=== PATIENT | male | born 1980 | race Caucasian/White ===

== ENCOUNTER 2022-08-29 18:16 | Day surgery (SDC) | payer OTHER, SELFPAY ==
--- NOTE | ~2022-08-29 | CT_ITS ---
EXAMINATION: CT ABDOMEN AND PELVIS WITH CONTRAST CLINICAL INFORMATION: Left lower quadrant pain COMPARISON: None available. TECHNIQUE: Multidetector volumetric images were obtained from the superior aspect of the liver through the pubic symphysis following administration 85 mL of Omnipaque 350 intravenous contrast. Sagittal and coronal reformatted images were obtained on the technologist's workstation. Oral contrast: No This CT examination was performed using dose optimization techniques as appropriate, variously including the following: *Automated exposure control *Adjustment of mA and/or kV according to patient size (this includes techniques or standardized protocols for targeted exams where dose is matched to indication/reason for exam; i.e. extremities or head) *Use of iterative reconstruction technique DLP: 703 mGy-cm FINDINGS: LUNG BASES: The visualized lung bases are unremarkable. LIVER, GALLBLADDER, AND BILIARY TREE: The liver is enlarged with borderline decreased attenuation suggesting hepatic steatosis. No focal hepatic lesion or biliary ductal dilatation is present. The gallbladder is unremarkable with no evidence of radiopaque gallstones, gallbladder wall thickening, or obvious pericholecystic inflammatory changes. PANCREAS: Unremarkable. SPLEEN: Unremarkable. ADRENAL GLANDS: Unremarkable. KIDNEYS AND URETERS: Right: The right kidney and ureter appear normal. Left: There is left-sided hydronephrosis and dilatation of the ureter down to a level of a 1.2 cm obstructing proximal ureteral calculus which measures 974 Hounsfield units and is 12.7 cm from the posterior axillary line. There is a small punctate 2 mm nonobstructing left lower pole calculus. BLADDER: Unremarkable. GASTROINTESTINAL TRACT: The small and large bowel are unremarkable. The appendix is unremarkable. ABDOMINAL WALL: No significant hernia is appreciated. LYMPH NODES: Normal. VASCULAR: Unremarkable. PELVIC VISCERA: The prostate and seminal vesicles are unremarkable. OSSEOUS STRUCTURES: Mild degenerative changes are present in the spine CT/CT abdomen pelvis w IV con IMPRESSION: Obstructing 1.2 cm proximal left ureteral calculus with associated hydronephrosis. Fleischner guidelines were followed.
[2022-08-29 18:51] VITALS: BP 149/92; PULSE 77; RESP 18; TEMP 36.4; O2SAT 100; BMI 33.5
[2022-08-29 19:07] LABS: MANUAL DIFF FLAG NO
[2022-08-29 19:11] LABS: Basophils Percent Auto 0.2 % (0-2); Eosinophils Percent Auto 0.2 % (0-4); Hematocrit 43.1 % (42.0-52.0); Hemoglobin 15.2 g/dl (14.0-18.0); Imm Gran Abs Auto 0.03 X10*3/uL (0.00-0.03); Imm Gran Pct Auto 0.3 % (0.0-0.4); Lymphocytes Percent Auto 19.4 % (20-40); Mean Corpuscular HGB Conc 35.3 g/dl (31.0-36.0); Mean Corpuscular Hemoglobin 28.7 pg (27.0-33.0); Mean Corpuscular Volume 81.3 fL (80.0-98.0); Mean Platelet Volume 9.1 fL (9.4-12.4); Monocytes Absolute Auto 0.7 X10*3/uL (0.1-1.2); Neutrophils Absolute Auto 7.3 x10*3/uL (2.0-8.3); Neutrophils Percent Auto 72.9 % (45-73); Platelet Count 327 X10*3/uL (160-400); Red Cell Distribution Width 12.6 % (11.0-16.0); White Blood Count 10.1 X10*3/uL (4.8-10.8)
[2022-08-29 19:25] LABS: Alanine Aminotransferase 22 U/L (0-40); Albumin Level 4.8 g/dL (3.5-5.0); Alkaline Phosphatase 53 U/L (39-117); Anion Gap 14 (12-20); Aspartate Amino Transferase 17 U/L (5-37); Bilirubin Total 2.1 mg/dL (0.0-1.0); Blood Urea Nitrogen 22 mg/dL (9-16); Calcium 9.7 mg/dL (8.4-10.2); Carbon Dioxide 24 mmol/L (22-29); Chloride 103 mmol/L (96-108); Creatinine Clr Calc Pharmacy 84.1; Estimated Glomerular Filt Rate 54; Glucose Random 116 mg/dL (60-115); Lipase 14 U/L (8-78); Potassium 4.3 mmol/L (3.3-5.1); Sodium 137 mmol/L (135-145); Total Protein 7.7 g/dL (6.5-8.0)
[2022-08-29 19:31] LABS: IDNOW Serial# 9DB6401D; Influenza A Negative (Negative); Influenza B2 Negative (Negative)
[2022-08-29 19:32] LABS: COVID-19 Test Negative (Negative); IDNOW Serial# 6674DD1D
--- NOTE | 2022-08-29 19:34 | ED_ITS ---
HPI - Abdominal Pain General Chief Complaint: Abdominal Pain <BRITTANY Heaton - Last Filed: 08/29/22 20:47> Stated Complaint: Abdominal pain/Vomiting <BRITTANY Heaton - Last Filed: 08/29/22 20:47> Time Seen by Provider: 08/29/22 21:17 <BRITTANY Heaton - Last Filed: 08/29/22 20:47> Source: patient <Franco Perez MD - Last Filed: 08/30/22 07:13> Mode of arrival: ambulatory <Franco Perez MD - Last Filed: 08/30/22 07:13> Limitations: no limitations <Franco Perez MD - Last Filed: 08/30/22 07:13> History of Present Illness HPI narrative: Patient no significant past medical history healthy otherwise no family history of kidney stone noticed sudden onset of pain in left flank area 2 weeks ago gradually now it in the left lower abdomen associated with nausea and vomiting it is sharp and comes and goes no fever no chills no diarrhea no relation of the food with pain no urinary complaints no fever or chills patient never had a pain in the past <Franco Perez MD - Last Filed: 08/30/22 0 7:13> Related Data Allergies/Adverse Reactions: Allergies Allergy/AdvReac Type Severity Reaction Status Date / Time Penicillins Allergy Hives Verified 08/29/22 18:55 <BRITTANY Heaton - Last Filed: 08/29/22 20:47> Review of Systems Review of Systems Yes all other systems are reviewed and are negative <Franco Perez MD - Last Filed: 08/30/22 07:13> [facility] Social History Social History: Social History Advance Directives: No Advance Directives Information Provided: Yes <BRITTANY Heaton - Last Filed: 08/29/22 20:47> Physical Exam ED Vital Signs: Vital Signs - 24 hr 08/29/22 18:51 08/29/22 20:44 08/29/22 21:04 Temperature 97.6 F 98 F Pulse Rate 77 68 67 Respiratory Rate 18 24 H 19 Blood Pressure 149/92 H 177/109 H 157/87 H Pulse Oximetry 100 100 100 Oxygen Delivery Method Room Air Room Air Room Air 08/29/22 23:20 08/30/22 01:51 08/30/22 05:20 Temperature 98.7 F Pulse Rate 71 62 65 Respiratory Rate 17 16 16 Blood Pressure 106/59 L 107/65 103/57 L Pulse Oximetry 97 98 96 Oxygen Delivery Method Nasal Cannula Room Air Room Air 08/30/22 06:51 08/30/22 08:20 Temperature 99.0 F 98.3 F Pulse Rate 53 57 Respiratory Rate 17 17 Blood Pressure 118/73 123/72 Pulse Oximetry 98 99 Oxygen Delivery Method Room Air Room Air BMI result Body Mass Index 33.5 <BRITTANY Heaton - Last Filed: 08/29/22 20:47> Vital Signs - 24 hr 08/29/22 18:51 08/29/22 20:44 08/29/22 21:04 Temperature 97.6 F 98 F Pulse Rate 77 68 67 Respiratory Rate 18 24 H 19 Blood Pressure 149/92 H 177/109 H 157/87 H Pulse Oximetry 100 100 100 Oxygen Delivery Method Room Air Room Air Room Air 08/29/22 23:20 08/30/22 01:51 08/30/22 05:20 Temperature 98.7 F Pulse Rate 71 62 65 Respiratory Rate 17 16 16 Blood Pressure 106/59 L 107/65 103/57 L Pulse Oximetry 97 98 96 Oxygen Delivery Method Nasal Cannula Room Air Room Air 08/30/22 06:51 08/30/22 08:20 Temperature 99.0 F 98.3 F Pulse Rate 53 57 Respiratory Rate 17 17 Blood Pressure 118/73 123/72 Pulse Oximetry 98 99 Oxygen Delivery Method Room Air Room Air BMI result Body Mass Index 33.5 <Franco Perez MD - Last Filed: 08/30/22 07:13> Vital Signs - 24 hr 08/29/22 18:51 08/29/22 20:44 08/29/22 21:04 Temperature 97.6 F 98 F Pulse Rate 77 68 67 Respiratory Rate 18 24 H 19 Blood Pressure 149/92 H 177/109 H 157/87 H Pulse Oximetry 100 100 100 Oxygen Delivery Method Room Air Room Air Room Air 08/29/22 23:20 08/30/22 01:51 08/30/22 05:20 Temperature 98.7 F Pulse Rate 71 62 65 Respiratory Rate 17 16 16 Blood Pressure 106/59 L 107/65 103/57 L Pulse Oximetry 97 98 96 Oxygen Delivery Method Nasal Cannula Room Air Room Air 08/30/22 06:51 08/30/22 08:20 Temperature 99.0 F 98.3 F Pulse Rate 53 57 Respiratory Rate 17 17 Blood Pressure 118/73 123/72 Pulse Oximetry 98 99 Oxygen Delivery Method Room Air Room Air BMI result Body Mass Index 33.5 <Ashok Joseph MD - Last Filed: 08/30/22 09:03> Appearance: Alert. Oriented X3. In moderate distress. Eyes: No pallor or icterus ENT: Pharynx normal. Oral Mucosa moist Neck: Normal inspection. Neck supple. CVS: Normal heart rate and rhythm. Pulses normal. Respiratory: No respiratory distress. Equal air entry bilateral, no wheezing/rales/rhonchi Abdomen: Soft , tenderness in lower abdomen with guarding no rebound tenderness. Bowel sounds are present, no mass palpable, L CVA tenderness Skin: Skin warm and dry. Normal skin color. Normal skin turgor. Extremities: No lower extremity edema. No calf tenderness Neuro: Oriented X 3. No motor deficit. <Franco Perez MD - Last Filed: 08/30/22 07:13> Course Course Course Narrative: This is an RME: Additional HPI, ROS, PE not included below will be deferred to primary provider. This is a 41-year-old male presenting with left lower abdominal pain with associated nausea and vomiting that started 2 weeks ago and has been progressively worsening at times w/ L flank pain. Patient reports he has not been able to keep much down by mouth. Pain is intermittent, severe in nature. Denies history of diverticulitis, patient denies changes in bowel habits or urination. Denies fevers, chills. Reports fatigue malaise. Used to be a heavy drinker stopped 7 months ago Discomfort with palpation to left lower abdomen, patient appears uncomfortable. Vital signs are stable. Plan at this time basic labs, imaging, urine. 2044 Patient w/ worsening pain charge aware. <BRITTANY Heaton - Last Filed: 08/29/22 20:47> Medical Decision Making Medical Decision Making MDM Narrative: Patient with obstructive uropathy left side with 1.2 cm stone in left proximal ureter with hydronephrosis. Patient feels much better after pain medication case discussed with urologist Dr. Mcpherson will do lithotripsy in a.m. and p.o. after midnight <Franco Perez MD - Last Filed: 08/30/22 07:13> Patient with obstructive uropathy left side with 1.2 cm stone in left proximal ureter with hydronephrosis. Patient feels much better after pain medication case discussed with urologist Dr. Mcpherson will do lithotripsy in a.m. and p.o. after midnight 0900: Patient seen by Dr. Jb Pradhan and patient will go to OR for further treatment <Ashok Joseph MD - Last Filed: 08/30/22 09:03> Lab Data [facility] Lab Attestation statement: I reviewed the patient's lab results. <Franco Perez MD - Last Filed: 08/30/22 07:13> Result Diagrams: 08/29/22 18:59 08/29/22 18:59 <BRITTANY Heaton - Last Filed: 08/29/22 20:47> Labs: Lab Results 08/29/22 08/29/22 08/29/22 Range/Units 18:59 18:59 18:59 WBC 10.1 (4.8-10.8) X10*3/uL RBC 5.30 (4.60-5.80) X10*6/uL Hgb 15.2 (14.0-18.0) g/dl Hct 43.1 (42.0-52.0) % MCV 81.3 (80.0-98.0) fL MCH 28.7 (27.0-33.0) pg MCHC 35.3 (31.0-36.0) g/dl RDW 12.6 (11.0-16.0) % Plt Count 327 (160-400) X10*3/uL MPV 9.1 L (9.4-12.4) fL Immature Gran % (Auto) 0.3 (0.0-0.4) % Neut % (Auto) 72.9 (45-73) % Lymph % (Auto) 19.4 L (20-40) % [place] % (Auto) 7.0 (2-11) % Eos % (Auto) 0.2 (0-4) % Baso % (Auto) 0.2 (0-2) % Lymph # (Auto) 2.0 (1.2-4.9) X10*3/uL [place] # (Auto) 0.7 (0.1-1.2) X10*3/uL Eos # (Auto) 0.0 (0.0-0.4) X10*3/uL Baso # (Auto) 0.0 (0.0-0.2) X10*3/uL Abs Immat Gran (auto) 0.03 (0.00-0.03) X10*3/uL Absolute Neuts (auto) 7.3 (2.0-8.3) x10*3/uL Absolute Nucleated RBC 0.000 (0.0-0.012) X10*3/uL Nucleated RBC % (auto) 0.0 (0.0-0.2) /100WBC Sodium 137 (135-145) mmol/L Potassium 4.3 (3.3-5.1) mmol/L Chloride 103 (96-108) mmol/L Carbon Dioxide 24 (22-29) mmol/L Anion Gap 14 (12-20) BUN 22 H (9-16) mg/dL Creatinine 1.42 H (0.5-1.4) mg/dL Estim Creat Clear Calc 84.1 Estimated GFR 54 Random Glucose 116 H (60-115) mg/dL Lactic Acid (0.5-2.0) mmol/L Lactic Acid F/U @ 2Hr (0.5-2.0) mmol/L Calcium 9.7 (8.4-10.2) mg/dL Magnesium 2.0 (1.6-2.6) mg/dL Total Bilirubin 2.1 H (0.0-1.0) mg/dL AST 17 (5-37) U/L ALT 22 (0-40) U/L Alkaline Phosphatase 53 (39-117) U/L Total Protein 7.7 (6.5-8.0) g/dL Albumin 4.8 (3.5-5.0) g/dL Lipase 14 (8-78) U/L Urine Color Urine Appearance Urine pH (5.0-9.0) Ur Specific [place] (1.005-1.025) Urine Protein (Neg-Trace) mg/dL Urine Glucose (UA) (Negative) mg/dL Urine Ketones (Negative) mg/dL Urine Blood (Negative) Urine Nitrite (Negative) Ur Leukocyte Esterase (Negative) Urine RBC (0-2) /HPF Urine WBC (0-5) /HPF Ur Squamous Epith Cells (0-2) /HPF Urine Bacteria (None Seen) Hyaline Casts (0-2) /LPF COVID-19 (TK) (Negative) COVID-19 Clin Com Influenza Type A (ELIECER) Negative (Negative) Influenza Type B (ELIECER) Negative (Negative) Influenza A & B Note See Note 08/29/22 08/29/22 08/29/22 Range/Units 18:59 20:35 20:35 WBC (4.8-10.8) X10*3/uL RBC (4.60-5.80) X10*6/uL Hgb (14.0-18.0) g/dl Hct (42.0-52.0) % MCV (80.0-98.0) fL MCH (27.0-33.0) pg MCHC (31.0-36.0) g/dl RDW (11.0-16.0) % Plt Count (160-400) X10*3/uL MPV (9.4-12.4) fL Immature Gran % (Auto) (0.0-0.4) % Neut % (Auto) (45-73) % Lymph % (Auto) (20-40) % [place] % (Auto) (2-11) % Eos % (Auto) (0-4) % Baso % (Auto) (0-2) % Lymph # (Auto) (1.2-4.9) X10*3/uL [place] # (Auto) (0.1-1.2) X10*3/uL Eos # (Auto) (0.0-0.4) X10*3/uL Baso # (Auto) (0.0-0.2) X10*3/uL Abs Immat Gran (auto) (0.00-0.03) X10*3/uL Absolute Neuts (auto) (2.0-8.3) x10*3/uL Absolute Nucleated RBC (0.0-0.012) X10*3/uL Nucleated RBC % (auto) (0.0-0.2) /100WBC Sodium (135-145) mmol/L Potassium (3.3-5.1) mmol/L Chloride (96-108) mmol/L Carbon Dioxide (22-29) mmol/L Anion Gap (12-20) BUN (9-16) mg/dL Creatinine (0.5-1.4) mg/dL Estim Creat Clear Calc Estimated GFR Random Glucose (60-115) mg/dL Lactic Acid 4.6 H* (0.5-2.0) mmol/L Lactic Acid F/U @ 2Hr (0.5-2.0) mmol/L Calcium (8.4-10.2) mg/dL Magnesium (1.6-2.6) mg/dL Total Bilirubin (0.0-1.0) mg/dL AST (5-37) U/L ALT (0-40) U/L Alkaline Phosphatase (39-117) U/L Total Protein (6.5-8.0) g/dL Albumin (3.5-5.0) g/dL Lipase (8-78) U/L Urine Color Yellow Urine Appearance Clear Urine pH 6.0 (5.0-9.0) Ur Specific [place] 1.025 (1.005-1.025) Urine Protein Negative (Neg-Trace) mg/dL Urine Glucose (UA) Negative (Negative) mg/dL Urine Ketones Negative (Negative) mg/dL Urine Blood Moderate (2+) H (Negative) Urine Nitrite Negative (Negative) Ur Leukocyte Esterase Negative (Negative) Urine RBC 11-20 H (0-2) /HPF Urine WBC 0-5 (0-5) /HPF Ur Squamous Epith Cells 0-2 (0-2) /HPF Urine Bacteria None Seen (None Seen) Hyaline Casts 0-2 (0-2) /LPF COVID-19 (TK) Negative (Negative) COVID-19 Clin Com See Note Influenza Type A (ELIECER) (Negative) Influenza Type B (ELIECER) (Negative) Influenza A & B Note 08/29/22 Range/Units 23:58 WBC (4.8-10.8) X10*3/uL RBC (4.60-5.80) X10*6/uL Hgb (14.0-18.0) g/dl Hct (42.0-52.0) % MCV (80.0-98.0) fL MCH (27.0-33.0) pg MCHC (31.0-36.0) g/dl RDW (11.0-16.0) % Plt Count (160-400) X10*3/uL MPV (9.4-12.4) fL Immature Gran % (Auto) (0.0-0.4) % Neut % (Auto) (45-73) % Lymph % (Auto) (20-40) % [place] % (Auto) (2-11) % Eos % (Auto) (0-4) % Baso % (Auto) (0-2) % Lymph # (Auto) (1.2-4.9) X10*3/uL [place] # (Auto) (0.1-1.2) X10*3/uL Eos # (Auto) (0.0-0.4) X10*3/uL Baso # (Auto) (0.0-0.2) X10*3/uL Abs Immat Gran (auto) (0.00-0.03) X10*3/uL Absolute Neuts (auto) (2.0-8.3) x10*3/uL Absolute Nucleated RBC (0.0-0.012) X10*3/uL Nucleated RBC % (auto) (0.0-0.2) /100WBC Sodium (135-145) mmol/L Potassium (3.3-5.1) mmol/L Chloride (96-108) mmol/L Carbon Dioxide (22-29) mmol/L Anion Gap (12-20) BUN (9-16) mg/dL Creatinine (0.5-1.4) mg/dL Estim Creat Clear Calc Estimated GFR Random Glucose (60-115) mg/dL Lactic Acid (0.5-2.0) mmol/L Lactic Acid F/U @ 2Hr 2.0 (0.5-2.0) mmol/L Calcium (8.4-10.2) mg/dL Magnesium (1.6-2.6) mg/dL Total Bilirubin (0.0-1.0) mg/dL AST (5-37) U/L ALT (0-40) U/L Alkaline Phosphatase (39-117) U/L Total Protein (6.5-8.0) g/dL Albumin (3.5-5.0) g/dL Lipase (8-78) U/L Urine Color Urine Appearance Urine pH (5.0-9.0) Ur Specific [place] (1.005-1.025) Urine Protein (Neg-Trace) mg/dL Urine Glucose (UA) (Negative) mg/dL Urine Ketones (Negative) mg/dL Urine Blood (Negative) Urine Nitrite (Negative) Ur Leukocyte Esterase (Negative) Urine RBC (0-2) /HPF Urine WBC (0-5) /HPF Ur Squamous Epith Cells (0-2) /HPF Urine Bacteria (None Seen) Hyaline Casts (0-2) /LPF COVID-19 (TK) (Negative) COVID-19 Clin Com Influenza Type A (ELIECER) (Negative) Influenza Type B (ELIECER) (Negative) Influenza A & B Note <BRITTANY Heaton - Last Filed: 08/29/22 20:47> Lab Results 08/29/22 08/29/22 08/29/22 Range/Units 18:59 18:59 18:59 WBC 10.1 (4.8-10.8) X10*3/uL RBC 5.30 (4.60-5.80) X10*6/uL Hgb 15.2 (14.0-18.0) g/dl Hct 43.1 (42.0-52.0) % MCV 81.3 (80.0-98.0) fL MCH 28.7 (27.0-33.0) pg MCHC 35.3 (31.0-36.0) g/dl RDW 12.6 (11.0-16.0) % Plt Count 327 (160-400) X10*3/uL MPV 9.1 L (9.4-12.4) fL Immature Gran % (Auto) 0.3 (0.0-0.4) % Neut % (Auto) 72.9 (45-73) % Lymph % (Auto) 19.4 L (20-40) % [place] % (Auto) 7.0 (2-11) % Eos % (Auto) 0.2 (0-4) % Baso % (Auto) 0.2 (0-2) % Lymph # (Auto) 2.0 (1.2-4.9) X10*3/uL [place] # (Auto) 0.7 (0.1-1.2) X10*3/uL Eos # (Auto) 0.0 (0.0-0.4) X10*3/uL Baso # (Auto) 0.0 (0.0-0.2) X10*3/uL Abs Immat Gran (auto) 0.03 (0.00-0.03) X10*3/uL Absolute Neuts (auto) 7.3 (2.0-8.3) x10*3/uL Absolute Nucleated RBC 0.000 (0.0-0.012) X10*3/uL Nucleated RBC % (auto) 0.0 (0.0-0.2) /100WBC Sodium 137 (135-145) mmol/L Potassium 4.3 (3.3-5.1) mmol/L Chloride 103 (96-108) mmol/L Carbon Dioxide 24 (22-29) mmol/L Anion Gap 14 (12-20) BUN 22 H (9-16) mg/dL Creatinine 1.42 H (0.5-1.4) mg/dL Estim Creat Clear Calc 84.1 Estimated GFR 54 Random Glucose 116 H (60-115) mg/dL Lactic Acid (0.5-2.0) mmol/L Lactic Acid F/U @ 2Hr (0.5-2.0) mmol/L Calcium 9.7 (8.4-10.2) mg/dL Magnesium 2.0 (1.6-2.6) mg/dL Total Bilirubin 2.1 H (0.0-1.0) mg/dL AST 17 (5-37) U/L ALT 22 (0-40) U/L Alkaline Phosphatase 53 (39-117) U/L Total Protein 7.7 (6.5-8.0) g/dL Albumin 4.8 (3.5-5.0) g/dL Lipase 14 (8-78) U/L Urine Color Urine Appearance Urine pH (5.0-9.0) Ur Specific [place] (1.005-1.025) Urine Protein (Neg-Trace) mg/dL Urine Glucose (UA) (Negative) mg/dL Urine Ketones (Negative) mg/dL Urine Blood (Negative) Urine Nitrite (Negative) Ur Leukocyte Esterase (Negative) Urine RBC (0-2) /HPF Urine WBC (0-5) /HPF Ur Squamous Epith Cells (0-2) /HPF Urine Bacteria (None Seen) Hyaline Casts (0-2) /LPF COVID-19 (TK) (Negative) COVID-19 Clin Com Influenza Type A (ELIECER) Negative (Negative) Influenza Type B (ELIECER) Negative (Negative) Influenza A & B Note See Note 08/29/22 08/29/22 08/29/22 Range/Units 18:59 20:35 20:35 WBC (4.8-10.8) X10*3/uL RBC (4.60-5.80) X10*6/uL Hgb (14.0-18.0) g/dl Hct (42.0-52.0) % MCV (80.0-98.0) fL MCH (27.0-33.0) pg MCHC (31.0-36.0) g/dl RDW (11.0-16.0) % Plt Count (160-400) X10*3/uL MPV (9.4-12.4) fL Immature Gran % (Auto) (0.0-0.4) % Neut % (Auto) (45-73) % Lymph % (Auto) (20-40) % [place] % (Auto) (2-11) % Eos % (Auto) (0-4) % Baso % (Auto) (0-2) % Lymph # (Auto) (1.2-4.9) X10*3/uL [place] # (Auto) (0.1-1.2) X10*3/uL Eos # (Auto) (0.0-0.4) X10*3/uL Baso # (Auto) (0.0-0.2) X10*3/uL Abs Immat Gran (auto) (0.00-0.03) X10*3/uL Absolute Neuts (auto) (2.0-8.3) x10*3/uL Absolute Nucleated RBC (0.0-0.012) X10*3/uL Nucleated RBC % (auto) (0.0-0.2) /100WBC Sodium (135-145) mmol/L Potassium (3.3-5.1) mmol/L Chloride (96-108) mmol/L Carbon Dioxide (22-29) mmol/L Anion Gap (12-20) BUN (9-16) mg/dL Creatinine (0.5-1.4) mg/dL Estim Creat Clear Calc Estimated GFR Random Glucose (60-115) mg/dL Lactic Acid 4.6 H* (0.5-2.0) mmol/L Lactic Acid F/U @ 2Hr (0.5-2.0) mmol/L Calcium (8.4-10.2) mg/dL Magnesium (1.6-2.6) mg/dL Total Bilirubin (0.0-1.0) mg/dL AST (5-37) U/L ALT (0-40) U/L Alkaline Phosphatase (39-117) U/L Total Protein (6.5-8.0) g/dL Albumin (3.5-5.0) g/dL Lipase (8-78) U/L Urine Color Yellow Urine Appearance Clear Urine pH 6.0 (5.0-9.0) Ur Specific [place] 1.025 (1.005-1.025) Urine Protein Negative (Neg-Trace) mg/dL Urine Glucose (UA) Negative (Negative) mg/dL Urine Ketones Negative (Negative) mg/dL Urine Blood Moderate (2+) H (Negative) Urine Nitrite Negative (Negative) Ur Leukocyte Esterase Negative (Negative) Urine RBC 11-20 H (0-2) /HPF Urine WBC 0-5 (0-5) /HPF Ur Squamous Epith Cells 0-2 (0-2) /HPF Urine Bacteria None Seen (None Seen) Hyaline Casts 0-2 (0-2) /LPF COVID-19 (TK) Negative (Negative) COVID-19 Clin Com See Note Influenza Type A (ELIECER) (Negative) Influenza Type B (ELIECER) (Negative) Influenza A & B Note 08/29/22 Range/Units 23:58 WBC (4.8-10.8) X10*3/uL RBC (4.60-5.80) X10*6/uL Hgb (14.0-18.0) g/dl Hct (42.0-52.0) % MCV (80.0-98.0) fL MCH (27.0-33.0) pg MCHC (31.0-36.0) g/dl RDW (11.0-16.0) % Plt Count (160-400) X10*3/uL MPV (9.4-12.4) fL Immature Gran % (Auto) (0.0-0.4) % Neut % (Auto) (45-73) % Lymph % (Auto) (20-40) % [place] % (Auto) (2-11) % Eos % (Auto) (0-4) % Baso % (Auto) (0-2) % Lymph # (Auto) (1.2-4.9) X10*3/uL [place] # (Auto) (0.1-1.2) X10*3/uL Eos # (Auto) (0.0-0.4) X10*3/uL Baso # (Auto) (0.0-0.2) X10*3/uL Abs Immat Gran (auto) (0.00-0.03) X10*3/uL Absolute Neuts (auto) (2.0-8.3) x10*3/uL Absolute Nucleated RBC (0.0-0.012) X10*3/uL Nucleated RBC % (auto) (0.0-0.2) /100WBC Sodium (135-145) mmol/L Potassium (3.3-5.1) mmol/L Chloride (96-108) mmol/L Carbon Dioxide (22-29) mmol/L Anion Gap (12-20) BUN (9-16) mg/dL Creatinine (0.5-1.4) mg/dL Estim Creat Clear Calc Estimated GFR Random Glucose (60-115) mg/dL Lactic Acid (0.5-2.0) mmol/L Lactic Acid F/U @ 2Hr 2.0 (0.5-2.0) mmol/L Calcium (8.4-10.2) mg/dL Magnesium (1.6-2.6) mg/dL Total Bilirubin (0.0-1.0) mg/dL AST (5-37) U/L ALT (0-40) U/L Alkaline Phosphatase (39-117) U/L Total Protein (6.5-8.0) g/dL Albumin (3.5-5.0) g/dL Lipase (8-78) U/L Urine Color Urine Appearance Urine pH (5.0-9.0) Ur Specific [place] (1.005-1.025) Urine Protein (Neg-Trace) mg/dL Urine Glucose (UA) (Negative) mg/dL Urine Ketones (Negative) mg/dL Urine Blood (Negative) Urine Nitrite (Negative) Ur Leukocyte Esterase (Negative) Urine RBC (0-2) /HPF Urine WBC (0-5) /HPF Ur Squamous Epith Cells (0-2) /HPF Urine Bacteria (None Seen) Hyaline Casts (0-2) /LPF COVID-19 (TK) (Negative) COVID-19 Clin Com Influenza Type A (ELIECER) (Negative) Influenza Type B (ELIECER) (Negative) Influenza A & B Note <Franco Perez MD - Last Filed: 08/30/22 07:13> Lab Results 08/29/22 08/29/22 08/29/22 Range/Units 18:59 18:59 18:59 WBC 10.1 (4.8-10.8) X10*3/uL RBC 5.30 (4.60-5.80) X10*6/uL Hgb 15.2 (14.0-18.0) g/dl Hct 43.1 (42.0-52.0) % MCV 81.3 (80.0-98.0) fL MCH 28.7 (27.0-33.0) pg MCHC 35.3 (31.0-36.0) g/dl RDW 12.6 (11.0-16.0) % Plt Count 327 (160-400) X10*3/uL MPV 9.1 L (9.4-12.4) fL Immature Gran % (Auto) 0.3 (0.0-0.4) % Neut % (Auto) 72.9 (45-73) % Lymph % (Auto) 19.4 L (20-40) % [place] % (Auto) 7.0 (2-11) % Eos % (Auto) 0.2 (0-4) % Baso % (Auto) 0.2 (0-2) % Lymph # (Auto) 2.0 (1.2-4.9) X10*3/uL [place] # (Auto) 0.7 (0.1-1.2) X10*3/uL Eos # (Auto) 0.0 (0.0-0.4) X10*3/uL Baso # (Auto) 0.0 (0.0-0.2) X10*3/uL Abs Immat Gran (auto) 0.03 (0.00-0.03) X10*3/uL Absolute Neuts (auto) 7.3 (2.0-8.3) x10*3/uL Absolute Nucleated RBC 0.000 (0.0-0.012) X10*3/uL Nucleated RBC % (auto) 0.0 (0.0-0.2) /100WBC Sodium 137 (135-145) mmol/L Potassium 4.3 (3.3-5.1) mmol/L Chloride 103 (96-108) mmol/L Carbon Dioxide 24 (22-29) mmol/L Anion Gap 14 (12-20) BUN 22 H (9-16) mg/dL Creatinine 1.42 H (0.5-1.4) mg/dL Estim Creat Clear Calc 84.1 Estimated GFR 54 Random Glucose 116 H (60-115) mg/dL Lactic Acid (0.5-2.0) mmol/L Lactic Acid F/U @ 2Hr (0.5-2.0) mmol/L Calcium 9.7 (8.4-10.2) mg/dL Magnesium 2.0 (1.6-2.6) mg/dL Total Bilirubin 2.1 H (0.0-1.0) mg/dL AST 17 (5-37) U/L ALT 22 (0-40) U/L Alkaline Phosphatase 53 (39-117) U/L Total Protein 7.7 (6.5-8.0) g/dL Albumin 4.8 (3.5-5.0) g/dL Lipase 14 (8-78) U/L Urine Color Urine Appearance Urine pH (5.0-9.0) Ur Specific [place] (1.005-1.025) Urine Protein (Neg-Trace) mg/dL Urine Glucose (UA) (Negative) mg/dL Urine Ketones (Negative) mg/dL Urine Blood (Negative) Urine Nitrite (Negative) Ur Leukocyte Esterase (Negative) Urine RBC (0-2) /HPF Urine WBC (0-5) /HPF Ur Squamous Epith Cells (0-2) /HPF Urine Bacteria (None Seen) Hyaline Casts (0-2) /LPF COVID-19 (TK) (Negative) COVID-19 Clin Com Influenza Type A (ELIECER) Negative (Negative) Influenza Type B (ELIECER) Negative (Negative) Influenza A & B Note See Note 08/29/22 08/29/22 08/29/22 Range/Units 18:59 20:35 20:35 WBC (4.8-10.8) X10*3/uL RBC (4.60-5.80) X10*6/uL Hgb (14.0-18.0) g/dl Hct (42.0-52.0) % MCV (80.0-98.0) fL MCH (27.0-33.0) pg MCHC (31.0-36.0) g/dl RDW (11.0-16.0) % Plt Count (160-400) X10*3/uL MPV (9.4-12.4) fL Immature Gran % (Auto) (0.0-0.4) % Neut % (Auto) (45-73) % Lymph % (Auto) (20-40) % [place] % (Auto) (2-11) % Eos % (Auto) (0-4) % Baso % (Auto) (0-2) % Lymph # (Auto) (1.2-4.9) X10*3/uL [place] # (Auto) (0.1-1.2) X10*3/uL Eos # (Auto) (0.0-0.4) X10*3/uL Baso # (Auto) (0.0-0.2) X10*3/uL Abs Immat Gran (auto) (0.00-0.03) X10*3/uL Absolute Neuts (auto) (2.0-8.3) x10*3/uL Absolute Nucleated RBC (0.0-0.012) X10*3/uL Nucleated RBC % (auto) (0.0-0.2) /100WBC Sodium (135-145) mmol/L Potassium (3.3-5.1) mmol/L Chloride (96-108) mmol/L Carbon Dioxide (22-29) mmol/L Anion Gap (12-20) BUN (9-16) mg/dL Creatinine (0.5-1.4) mg/dL Estim Creat Clear Calc Estimated GFR Random Glucose (60-115) mg/dL Lactic Acid 4.6 H* (0.5-2.0) mmol/L Lactic Acid F/U @ 2Hr (0.5-2.0) mmol/L Calcium (8.4-10.2) mg/dL Magnesium (1.6-2.6) mg/dL Total Bilirubin (0.0-1.0) mg/dL AST (5-37) U/L ALT (0-40) U/L Alkaline Phosphatase (39-117) U/L Total Protein (6.5-8.0) g/dL Albumin (3.5-5.0) g/dL Lipase (8-78) U/L Urine Color Yellow Urine Appearance Clear Urine pH 6.0 (5.0-9.0) Ur Specific [place] 1.025 (1.005-1.025) Urine Protein Negative (Neg-Trace) mg/dL Urine Glucose (UA) Negative (Negative) mg/dL Urine Ketones Negative (Negative) mg/dL Urine Blood Moderate (2+) H (Negative) Urine Nitrite Negative (Negative) Ur Leukocyte Esterase Negative (Negative) Urine RBC 11-20 H (0-2) /HPF Urine WBC 0-5 (0-5) /HPF Ur Squamous Epith Cells 0-2 (0-2) /HPF Urine Bacteria None Seen (None Seen) Hyaline Casts 0-2 (0-2) /LPF COVID-19 (TK) Negative (Negative) COVID-19 Clin Com See Note Influenza Type A ([facility]IECER) (Negative) Influenza Type B ([facility]IECER) (Negative) Influenza A & B Note 08/29/22 Range/Units 23:58 WBC (4.8-10.8) X10*3/uL RBC (4.60-5.80) X10*6/uL Hgb (14.0-18.0) g/dl Hct (42.0-52.0) % MCV (80.0-98.0) fL MCH (27.0-33.0) pg MCHC (31.0-36.0) g/dl RDW (11.0-16.0) % Plt Count (160-400) X10*3/uL MPV (9.4-12.4) fL Immature Gran % (Auto) (0.0-0.4) % Neut % (Auto) (45-73) % Lymph % (Auto) (20-40) % [place] % (Auto) (2-11) % Eos % (Auto) (0-4) % Baso % (Auto) (0-2) % Lymph # (Auto) (1.2-4.9) X10*3/uL [place] # (Auto) (0.1-1.2) X10*3/uL Eos # (Auto) (0.0-0.4) X10*3/uL Baso # (Auto) (0.0-0.2) X10*3/uL Abs Immat Gran (auto) (0.00-0.03) X10*3/uL Absolute Neuts (auto) (2.0-8.3) x10*3/uL Absolute Nucleated RBC (0.0-0.012) X10*3/uL Nucleated RBC % (auto) (0.0-0.2) /100WBC Sodium (135-145) mmol/L Potassium (3.3-5.1) mmol/L Chloride (96-108) mmol/L Carbon Dioxide (22-29) mmol/L Anion Gap (12-20) BUN (9-16) mg/dL Creatinine (0.5-1.4) mg/dL Estim Creat Clear Calc Estimated GFR Random Glucose (60-115) mg/dL Lactic Acid (0.5-2.0) mmol/L Lactic Acid F/U @ 2Hr 2.0 (0.5-2.0) mmol/L Calcium (8.4-10.2) mg/dL Magnesium (1.6-2.6) mg/dL Total Bilirubin (0.0-1.0) mg/dL AST (5-37) U/L ALT (0-40) U/L Alkaline Phosphatase (39-117) U/L Total Protein (6.5-8.0) g/dL Albumin (3.5-5.0) g/dL Lipase (8-78) U/L Urine Color Urine Appearance Urine pH (5.0-9.0) Ur Specific [place] (1.005-1.025) Urine Protein (Neg-Trace) mg/dL Urine Glucose (UA) (Negative) mg/dL Urine Ketones (Negative) mg/dL Urine Blood (Negative) Urine Nitrite (Negative) Ur Leukocyte Esterase (Negative) Urine RBC (0-2) /HPF Urine WBC (0-5) /HPF Ur Squamous Epith Cells (0-2) /HPF Urine Bacteria (None Seen) Hyaline Casts (0-2) /LPF COVID-19 (TK) (Negative) COVID-19 Clin Com Influenza Type A ([facility]IECER) (Negative) Influenza Type B (ELIECER) (Negative) Influenza A & B Note <Ashok Joseph MD - Last Filed: 08/30/22 09:03> Radiology Impression Discussion of test interpretation with radiology: I have reviewed the radiologist's reading. <Franco Perez MD - Last Filed: 08/30/22 07:13> Radiologist Impression: CT/CT abdomen pelvis w IV con IMPRESSION: Obstructing 1.2 cm proximal left ureteral calculus with associated hydronephrosis. ? <Franco Perez MD - Last Filed: 08/30/22 07:13> Medications Administered Discontinued Medications Generic Name Dose Route Start Last Admin Trade Name Freq PRN Reason Stop Dose Admin Hydromorphone HCl 1 mg 08/29/22 21:34 08/29/22 22:24 Hydromorphone Hcl 1 Mg/Ml Syringe IVPUSH 08/29/22 21:35 1 mg ONCE ONE Administration Protocol Sodium Chloride 1,000 mls @ 999 mls/hr 08/29/22 19:45 08/29/22 22:15 Ns IV 08/29/22 20:45 Infused .Q1H1M RICKEY Infusion Sodium Chloride 1,000 mls @ 999 mls/hr 08/29/22 21:20 08/30/22 01:48 Ns IV 08/29/22 22:20 Infused .Q1H1M ONE Infusion Iohexol 100 ml 08/29/22 21:18 08/29/22 21:19 Iohexol 350 Mg/Ml 100 Ml Infus..Btl IV 08/29/22 21:19 85 ml ONCE ONE Administration Ketorolac Tromethamine 30 mg 08/29/22 21:34 08/29/22 22:10 Ketorolac Tromethamine 30 Mg/Ml Vial IVPUSH 08/29/22 21:35 30 mg ONCE ONE Administration Morphine Sulfate 4 mg 08/29/22 20:43 08/29/22 21:01 Morphine Sulfate 4 Mg/Ml Cartridge IVPUSH 08/29/22 20:44 4 mg ONCE ONE Administration Protocol Ondansetron HCl 4 mg 08/29/22 20:43 08/29/22 20:54 Ondansetron Odt 4 Mg Tab.Rapdis TRANSLINGU 08/29/22 20:44 4 mg ONCE ONE Administration Prochlorperazine Edisylate 10 mg 08/29/22 21:34 08/29/22 22:10 Prochlorperazine Edisylate 10 Mg/2 Ml Vial IVPUSH 08/29/22 21:35 10 mg ONCE ONE Administration <BRITTANY Heaton - Last Filed: 08/29/22 20:47> Medications Administered Discontinued Medications Generic Name Dose Route Start Last Admin Trade Name Freq PRN Reason Stop Dose Admin Hydromorphone HCl 1 mg 08/29/22 21:34 08/29/22 22:24 Hydromorphone Hcl 1 Mg/Ml Syringe IVPUSH 08/29/22 21:35 1 mg ONCE ONE Administration Protocol Sodium Chloride 1,000 mls @ 999 mls/hr 08/29/22 19:45 08/29/22 22:15 Ns IV 08/29/22 20:45 Infused .Q1H1M RICKEY Infusion Sodium Chloride 1,000 mls @ 999 mls/hr 08/29/22 21:20 08/30/22 01:48 Ns IV 08/29/22 22:20 Infused .Q1H1M ONE Infusion Iohexol 100 ml 08/29/22 21:18 08/29/22 21:19 Iohexol 350 Mg/Ml 100 Ml Infus..Btl IV 08/29/22 21:19 85 ml ONCE ONE Administration Ketorolac Tromethamine 30 mg 08/29/22 21:34 08/29/22 22:10 Ketorolac Tromethamine 30 Mg/Ml Vial IVPUSH 08/29/22 21:35 30 mg ONCE ONE Administration Morphine Sulfate 4 mg 08/29/22 20:43 08/29/22 21:01 Morphine Sulfate 4 Mg/Ml Cartridge IVPUSH 08/29/22 20:44 4 mg ONCE ONE Administration Protocol Ondansetron HCl 4 mg 08/29/22 20:43 08/29/22 20:54 Ondansetron Odt 4 Mg Tab.Rapdis TRANSLINGU 08/29/22 20:44 4 mg ONCE ONE Administration Prochlorperazine Edisylate 10 mg 08/29/22 21:34 08/29/22 22:10 Prochlorperazine Edisylate 10 Mg/2 Ml Vial IVPUSH 08/29/22 21:35 10 mg ONCE ONE Administration <Franco Perez MD - Last Filed: 08/30/22 07:13> Medications Administered Discontinued Medications Generic Name Dose Route Start Last Admin Trade Name Freq PRN Reason Stop Dose Admin Hydromorphone HCl 1 mg 08/29/22 21:34 08/29/22 22:24 Hydromorphone Hcl 1 Mg/Ml Syringe IVPUSH 08/29/22 21:35 1 mg ONCE ONE Administration Protocol Sodium Chloride 1,000 mls @ 999 mls/hr 08/29/22 19:45 08/29/22 22:15 Ns IV 08/29/22 20:45 Infused .Q1H1M RICKEY Infusion Sodium Chloride 1,000 mls @ 999 mls/hr 08/29/22 21:20 08/30/22 01:48 Ns IV 08/29/22 22:20 Infused .Q1H1M ONE Infusion Iohexol 100 ml 08/29/22 21:18 08/29/22 21:19 Iohexol 350 Mg/Ml 100 Ml Infus..Btl IV 08/29/22 21:19 85 ml ONCE ONE Administration Ketorolac Tromethamine 30 mg 08/29/22 21:34 08/29/22 22:10 Ketorolac Tromethamine 30 Mg/Ml Vial IVPUSH 08/29/22 21:35 30 mg ONCE ONE Administration Morphine Sulfate 4 mg 08/29/22 20:43 08/29/22 21:01 Morphine Sulfate 4 Mg/Ml Cartridge IVPUSH 08/29/22 20:44 4 mg ONCE ONE Administration Protocol Ondansetron HCl 4 mg 08/29/22 20:43 08/29/22 20:54 Ondansetron Odt 4 Mg Tab.Rapdis TRANSLINGU 08/29/22 20:44 4 mg ONCE ONE Administration Prochlorperazine Edisylate 10 mg 08/29/22 21:34 08/29/22 22:10 Prochlorperazine Edisylate 10 Mg/2 Ml Vial IVPUSH 08/29/22 21:35 10 mg ONCE ONE Administration <Ashok Joseph MD - Last Filed: 08/30/22 09:03> Discharge Plan Discharge Clinical Impression: Calculus of kidney <BRITTANY Heaton - Last Filed: 08/29/22 20:47> Patient Disposition: Xfer Other <BRITTANY Heaton - Last Filed: 08/29/22 20:47> Transfer Details: OR <BRITTANY Heaton - Last Filed: 08/29/22 20:47> OR <Franco Perez MD - Last Filed: 08/30/22 07:13> OR <Ashok Joseph MD - Last Filed: 08/30/22 09:03>
--- NOTE | 2022-08-29 20:42 | MHC.EDTECH ---
but sets of blood culture and lactic acid drawn and sent to lab .
[2022-08-29 20:44] VITALS: BP 177/109; PULSE 68; RESP 24; TEMP 36.6; O2SAT 100
[2022-08-29 20:44] LABS: Appearance Urine Clear; Color Urine Yellow; Glucose Urine UA Negative (Negative); Leukocyte Esterase Urine Negative (Negative); Nitrite Urine Negative (Negative); Specific Gravity - Urine 1.025 (1.005-1.025); UMIC TRIGGER UACC YES; Urine Blood Moderate (2+) (Negative); Urine Ketones Negative (Negative); Urine Protein Negative (Neg-Trace)
--- NOTE | 2022-08-29 20:45 | PC.NURSE ---
Patient c/o increased abdominal pain and nausea w/ dry heaves. pale, diaphoretic. patient reassessed in triaged- charge nurse aware and patient is now being brought back into a room.
[2022-08-29 20:51] LABS: WBC Urine 0-5 /HPF (0-5)
[2022-08-29 20:52] LABS: Bacteria Urine None Seen (None Seen); Hyaline Casts Urine 0-2 /LPF (0-2); Squamous Epithelial Cell Urine 0-2 /HPF (0-2)
[2022-08-29] MEDS: Ondansetron ODT 4 MG TAB.RAPDIS TRANSLINGU (20:54)
[2022-08-29] MEDS: 0.9 % Sodium Chloride 1,000 ML 999 ML IV ×2 (21:00→22:10)
[2022-08-29] MEDS: Morphine Sulfate 4 MG/ML CARTRIDGE IVPUSH (21:01)
[2022-08-29 21:04] VITALS: BP 157/87; PULSE 67; RESP 19; O2SAT 100
[2022-08-29 21:15] LABS: Lactic Acid 4.6 mmol/L (0.5-2.0)
[2022-08-29] MEDS: iohexoL 350 MG/ML 100 ML INFUS..BTL IV (21:19)
[2022-08-29] MEDS: Prochlorperazine Edisylate 10 MG/2 ML VIAL IVPUSH (22:10)
[2022-08-29] MEDS: Ketorolac Tromethamine 30 MG/ML VIAL IVPUSH (22:10)
[2022-08-29] MEDS: HYDROmorphone HCl 1 MG/ML SYRINGE IVPUSH (22:24)
[2022-08-29 22:40] LABS: Reflex Lactate? Lactic Acid Added
[2022-08-29 23:20] VITALS: BP 106/59; PULSE 71; RESP 17; O2SAT 97
[2022-08-30] VITALS (10 sets, daily range): BP systolic 103–138; BP diastolic 57–94; PULSE 52–73; RESP 16–18; TEMP 36.1–37.2; O2SAT 95–99
--- NOTE | 2022-08-30 05:50 | PC.NURSE ---
Pt placed on bipap at this time. 08/10 30%
--- NOTE | 2022-08-30 08:14 | PC.NURSE ---
Pt found semi-fowlers in hospital bed, a&ox4, airway open and patent, no difficulty/labored breathing, speaking full sentences, no obvious signs of distress. Lung sounds clr and equal all martinez bilaterally. Skin pink, warm, and dry. Heart sounds regular. Bowel sounds present all martinez, abdomen soft non-tender. No edema noted. Pt denies pain at this time. Pt aware of plan of care.
--- NOTE | 2022-08-30 08:47 | PC.NURSE ---
Rn to Rn report given to SSS. Pt aware of plan of care.
[2022-08-30] MEDS: Lactated Ringers 500 ML 125 ML IV (10:08)
--- NOTE | 2022-08-30 10:47 | P.CONAN_ITS ---
HPI - Anesthesia Eval Consult details Narrative: ?Patient with obstructive uropathy left side with 1.2 cm stone in left proximal ureter with hydronephrosis.? PMFSH Active Problems Active Problems: All Active Problems (Updated 08/30/22 @ 09:59 by Dinah Marsh, RN) Calculus of kidney (Acute) Past Medical History Medical History (Updated 08/30/22 @ 09:59 by Dinah Marsh, RN) History of asthma Kidney calculi Pre-hypertension Family History Family history of problems with anesthesia: No Surgical History Surgical History (Updated 08/30/22 @ 10:00 by Dinah Marsh RN) Hx of lithotripsy [place] teeth extracted History of Problems with Anesthesia: No Social History Social History Patient Tobacco Use Status: Never used Tobacco Are you DNR?: No Advance Directives: No Advance Directives Information Provided: Yes Recently lost weight without trying: No Nutrition Risks: No Nutritional Risk Meds Allergies Allergy/AdvReac Type Severity Reaction Status Date / Time Penicillins Allergy Hives Verified 08/29/22 18:55 Active Medications: Current Medications Lactated Ringer's (Lr) 500 mls @ 125 mls/hr IV .Q4H RICKEY Stop: 08/30/22 13:29 Last Admin: 08/30/22 10:08 Dose: 125 mls/hr Home Medications Medication Instructions Recorded Confirmed Last Taken Type fluticasone 250 mcg-salmeterol 50 inhalation 08/30/22 08/29/22 History mcg/dose blistr powdr for inhalation (Advair Diskus) Exam Exam Date and Time: August 30, 2022 1047 Height,Weight and Vital Signs: j Height 5 ft 11 in Weight 108.862 kg Last Vital Signs Temp 96.9 F 08/30/22 10:00 Pulse 67 08/30/22 10:00 Resp 18 08/30/22 10:00 BP 138/79 08/30/22 10:00 Pulse Ox 99 08/30/22 10:00 O2 Del Method Room Air 08/30/22 10:00 Pertinent Lab Results Pertinent Lab Results: Laboratory Tests 08/29/22 08/29/22 08/29/22 18:59 18:59 18:59 WBC 10.1 RBC 5.30 Hgb 15.2 Hct 43.1 MCV 81.3 MCH 28.7 MCHC 35.3 RDW 12.6 Plt Count 327 MPV 9.1 L Immature Gran % (Auto) 0.3 Neut % (Auto) 72.9 Lymph % (Auto) 19.4 L [place] % (Auto) 7.0 Eos % (Auto) 0.2 Baso % (Auto) 0.2 Lymph # (Auto) 2.0 [place] # (Auto) 0.7 Eos # (Auto) 0.0 Baso # (Auto) 0.0 Abs Immat Gran (auto) 0.03 Absolute Neuts (auto) 7.3 Absolute Nucleated RBC 0.000 Nucleated RBC % (auto) 0.0 Sodium 137 Potassium 4.3 Chloride 103 Carbon Dioxide 24 Anion Gap 14 BUN 22 H Creatinine 1.42 H Estim Creat Clear Calc 84.1 Estimated GFR 54 Random Glucose 116 H Lactic Acid Lactic Acid F/U @ 2Hr Calcium 9.7 Magnesium 2.0 Total Bilirubin 2.1 H AST 17 ALT 22 Alkaline Phosphatase 53 Total Protein 7.7 Albumin 4.8 Lipase 14 Urine Color Urine Appearance Urine pH Ur Specific [place] Urine Protein Urine Glucose (UA) Urine Ketones Urine Blood Urine Nitrite Ur Leukocyte Esterase Urine RBC Urine WBC Ur Squamous Epith Cells Urine Bacteria Hyaline Casts COVID-19 (TK) COVID-19 Clin Com Influenza Type A (ELIECER) Negative Influenza Type B (ELIECER) Negative Influenza A & B Note See Note 08/29/22 08/29/22 08/29/22 18:59 20:35 20:35 WBC RBC Hgb Hct MCV MCH MCHC RDW Plt Count MPV Immature Gran % (Auto) Neut % (Auto) Lymph % (Auto) [place] % (Auto) Eos % (Auto) Baso % (Auto) Lymph # (Auto) [place] # (Auto) Eos # (Auto) Baso # (Auto) Abs Immat Gran (auto) Absolute Neuts (auto) Absolute Nucleated RBC Nucleated RBC % (auto) Sodium Potassium Chloride Carbon Dioxide Anion Gap BUN Creatinine Estim Creat Clear Calc Estimated GFR Random Glucose Lactic Acid 4.6 H* Lactic Acid F/U @ 2Hr Calcium Magnesium Total Bilirubin AST ALT Alkaline Phosphatase Total Protein Albumin Lipase Urine Color Yellow Urine Appearance Clear Urine pH 6.0 Ur Specific [place] 1.025 Urine Protein Negative Urine Glucose (UA) Negative Urine Ketones Negative Urine Blood Moderate (2+) H Urine Nitrite Negative Ur Leukocyte Esterase Negative Urine RBC 11-20 H Urine WBC 0-5 Ur Squamous Epith Cells 0-2 Urine Bacteria None Seen Hyaline Casts 0-2 COVID-19 (TK) Negative COVID-19 Clin Com See Note Influenza Type A (ELIECER) Influenza Type B (ELIECER) Influenza A & B Note 08/29/22 23:58 WBC RBC Hgb Hct MCV MCH MCHC RDW Plt Count MPV Immature Gran % (Auto) Neut % (Auto) Lymph % (Auto) [place] % (Auto) Eos % (Auto) Baso % (Auto) Lymph # (Auto) [place] # (Auto) Eos # (Auto) Baso # (Auto) Abs Immat Gran (auto) Absolute Neuts (auto) Absolute Nucleated RBC Nucleated RBC % (auto) Sodium Potassium Chloride Carbon Dioxide Anion Gap BUN Creatinine Estim Creat Clear Calc Estimated GFR Random Glucose Lactic Acid Lactic Acid F/U @ 2Hr 2.0 Calcium Magnesium Total Bilirubin AST ALT Alkaline Phosphatase Total Protein Albumin Lipase Urine Color Urine Appearance Urine pH Ur Specific [place] Urine Protein Urine Glucose (UA) Urine Ketones Urine Blood Urine Nitrite Ur Leukocyte Esterase Urine RBC Urine WBC Ur Squamous Epith Cells Urine Bacteria Hyaline Casts COVID-19 (TK) COVID-19 Clin Com Influenza Type A (ELIECER) Influenza Type B (ELIECER) Influenza A & B Note Airway Mallampati Class: II TM Dist: >3cm Heart: rrr Lungs: cta Assessment and Plan Assessment Anesthesia Assessment: Anesthesia Plan Discussed and Chart Reviewed Final Anesthetic Review Family History of Problems with Anesthesia: No History of Problems with Anesthesia: No NPO: Yes ASA Class: III Final Preanesthetic Review: No Changes in Pt Med Stat, Meds/Allgs Chart Reviewed, Consent Obtained/Reviewed and Anes Risks/Benef Reviewed Patient Risk: Low Procedure Risk: Low Anesthetic Plan Anesthetic Plan: GA Disposition: Standard PACU
--- NOTE | 2022-08-30 12:50 | MHC.SHP ---
Pre-Procedural Eval Section A Date of Service: 08/30/22 The patient is an INPATIENT: No Section B Chief Complaint: Abdominal pain/Vomiting, Left ureteral stone Details of Present Illness: 41 year old with left hydronephrosis due to left ureteral stone 12 mm. Relevant Family History (Specify if Yes): No Medical History: No relevant PMH History of Previous Operations: No relevant previous surgery Allergies: Allergies Allergy/AdvReac Type Severity Reaction Status Date / Time Penicillins Allergy Hives Verified 08/29/22 18:55 Review of Systems Review of Systems Comment: 10 point ROS negative other than noted in HPI Exam Surgical H&P Exam: Normal: HEENT, Normal: Heart, Normal: Lungs and Normal: Skin Plan Diagnosis/Plan: Unchanged I have reviewed the history and physical and performed a pertinent physical examination on my patient. No changes have occurred unless specified. Left ESWL. Discussed risks to include but not limited to, blood in the urine, bruising to the skin, kidney hematoma, possible need for another procedure if a stone fragment obstructs the ureter while passing, possible need to repeat procedure if stone is not completely fragmented. Time Spent With Patient Time: Total time managing care of this patient today ____ minutes.
--- NOTE | 2022-08-30 12:54 | W.PM.OPN ---
Operative Note Operative Note Date of Service: 08/30/22 Narrative: PreOperative Diagnosis:? ? Left proximal ureteral stone Post Operative Diagnosis:?Left proximal ureteral stone Procedure:? Left? ESWL Surgeon:?Dr Preeti Fuentes Anesthesia:? General Indications for procedure: The patient understands ESWL may be a staged procedure and subsequent intervention may be required based on imaging after ESWL.? They also understand? there is a risk of bleeding to the kidney, infection, damage to adjacent organs, and stone migration following the procedure. - Imaging fluoroscopy 12 x 10 mm ureteral stone Procedure: After informed consent was verified the patient was brought to the operating room and placed in a supine position.? Anesthesia was performed per protocol. Safety pause time-out was performed. Imaging was displayed in the room and laterality confirmed. Left ESWL was performed.?The stone was visualized on both fluoroscopy.? Shockwave lithotripsy was performed, the first 600 shocks at 60 hertz.? A total of 3000 shocks to a maximum of power of 20 with a maximum rate of 120 hertz.? Some fragmentation of the stone was appreciated. The patient tolerated the procedure well and was transferred to the recovery area upon completion. Complications: None
--- NOTE | 2022-08-30 16:05 | PC.NURSE ---
PATIENT HAD PROCEDURE. PT CAME FROM THE ED. PATIENT DROVE HIMSELF TO THE ED (HIS CAR IS A STICK SHIFT). PT'S WAS GOING TO DRIVE HIM HOME BUT SHE DOESN'T KNOW HOW TO DRIVE A STICK SHIFT. PT STATES HE WAS GOING TO TEACH HER. THIS RN SUGGESTED AN UBER AND/OR CAB. PATIENT DOESN'T WANT TO PAY FOR IT. THIS RN CALLED MICHAEL WALLACE AND CORTEXED HER. MICHAEL CAME OVER AND SPOKE WITH PATIENT. OFFERED SECURITY TO DRIVE CAR HOME,ETC. PATIENT REFUSED ALL OFFERS AND ENDED UP SIGNING AN AMA.
== END 2022-08-30 16:09 | disposition home or self-care (01) ==
LOC: HO.ED 08-30 09:03 → HO.SSS 08-30 09:04
PROVIDERS: Physician Assistant; Emergency Provider Emergency Medicine Emergency Medical Services; Visit Provider Urology
PROC: (CPT 50590; principal; 2022-08-30 10:30)
DX: N13.2 Hydronephrosis with renal and ureteral calculous obstruction (principal); R10.9 Unspecified abdominal pain; R11.10 Vomiting, unspecified; J45.909 Unspecified asthma, uncomplicated; R03.0 Elevated blood-pressure reading, without diagnosis of hypertension; Z79.51 Long term (current) use of inhaled steroids; Z88.0 Allergy status to penicillin; Z20.822 Contact with and (suspected) exposure to COVID-19
CPT/HCPCS: 50590; 36415; 74177; 80053; 81001; 83605; 83690; 83735; 85025; 87040; 87502; 87635; 96361; 96374; 96375; 99285; J0131; J0690; J1100; J1170; J1885; J2270; J2405; J3010; Q9967

== ENCOUNTER 2022-09-12 08:29 | Outpatient (REF) | payer OTHER, SELFPAY ==
--- NOTE | ~2022-09-12 | XR_ITS ---
EXAMINATION: XR ABDOMEN KUB CLINICAL INDICATION: Status post left ESWL COMPARISON: CT abdomen pelvis with IV contrast for 09/14/2022 TECHNIQUE: AP view of the abdomen. FINDINGS: The bowel gas pattern is nonspecific without distention. There is 1 cm radiopaque density adjacent to the left L4 transverse process likely ureteral calculi. This may produce obstructive hydroureteronephrosis. A punctate radiopaque calculi seen in lower pole calyx left kidney.. No gross bony abnormality. XR/XR KUB IMPRESSION: There is obstructive 1 cm radiopaque calculi left mid ureter adjacent to L4 transverse process. No change in 2 mm radiopaque calculi lower pole calyx left kidney
== END 2022-09-12 08:30 | disposition home or self-care (01) ==
LOC: HO.HMGCX 08:29
PROVIDERS: Visit Provider Urology
DX: N20.1 Calculus of ureter (principal)
CPT/HCPCS: 74018